=== PATIENT | female | born 1995 | race Caucasian/White ===

== ENCOUNTER 2018-05-16 16:46 | Emergency (ER) | payer BC, OTHER ==
--- NOTE | 2018-05-16 16:50 | EDPHY ---
H & P Time Seen by Provider: 05/16/18 16:49 HPI/ROS: CHIEF COMPLAINT: Right lower quadrant pain HISTORY OF PRESENT ILLNESS: This is a 22-year-old female who is approximately 6 years status post laparoscopy ache cholecystectomy. She was in her usual state of health until approximately 7 days ago. At that time she had noted persistent, steady right lower quadrant pain. It is particularly worse in the last 3 days especially last night. Last night as she was trying to drift off to sleep she was restless for some 90 min as she had this intensification of this pain to the point where she was of sweaty and felt nauseated however she did not vomit. She would classify it as severe, as if an ache. While the pain has been persistent in the right lower quadrant for 1 full week some 4 or 5 days ago she started noticing a fullness of achiness in the right flank. However there has been no dysuria frequency or foul-smelling urine. She has had problems with ovarian cysts on multiple occasions. Several ultrasounds have been needed but the last has been quite some time ago. She has never had any surgery on the urogenital tract. Old charts reviewed. There was an episode of left lower quadrant pain with fevers and chills ultimately diagnosed as pyelonephritis, positive for E coli There have been times with the pain was worse with walking but per se that has not been particularly difficult. Driving here did not seem to bother her. Her appetite has been off. While she is hungry and she sits down to meal she cannot finish it. There is no shoulder pain She did note a clear vaginal discharge this past week prompting her to wear panty liner The her last menstrual period was 3 weeks ago lasted a week. Her bowel habits it is sporadic anywhere from every other day to a full week. Her last bowel was yesterday and she did not have to strain with this About 2 weeks ago she had bit of a nasty cold and has a residual cough but it is certainly be getting better. G 1 P 0 AB 1 LMP 3 weeks ago, last 1 week Contraception: Condoms, uncertain if the sperm settle agent is used REVIEW OF SYSTEMS: Constitutional: No fever, no chills. Eyes: No discharge No diplopia ENT: No sore throat. Cardiovascular: No chest pain, no palpitations. Respiratory: No cough, shortness of breath, or wheezing. Gastrointestinal: See above Genitourinary: See above Musculoskeletal: No back pain. Skin: No rashes. Neurological: No headache. A 10 system review of systems was performed and is negative except for the noted findings in the HPI. Source: Patient - Personal History Tetanus Vaccine Date: within 10 years - Medical/Surgical History Hx Asthma: No Hx Chronic Respiratory Disease: No Hx Diabetes: No Hx Cardiac Disease: No Hx Renal Disease: No Hx Cirrhosis: No Hx Alcoholism: No Hx HIV/AIDS: No Hx Splenectomy or Spleen Trauma: No Other PMH: ovarian cyst. cholecystectomy - Social History Smoking Status: Current every day smoker Alcohol Use: None Drug Use: None - Physical Exam Exam: General Appearance: Alert, no distress. Afebrile. Normal phonation. No respiratory distress. Eyes: Pupils equal and round no pallor or injection. No icterus ENT, Mouth: Mucous membranes moist Pharynx without erythema or exudate. TM Clear. Neck: No adenopathy. Supple. No JVD. Trachea in midline. Respiratory: There are no retractions, lungs are clear to auscultation. Cardiovascular: Regular rate and rhythm. Abdomen: Soft, nondistended. Bowel sounds are present There is tenderness present right lower quadrant with a positive Rovsing in respect to right upper abdominal palpation causing pain in the right lower quadrant, but this does not occur with palpation on left side. There is scant inguinal nodes of no significance. They are nontender. Not enlarged. Femoral pulses equal. Neurological: Ox3. No motor weakness. Sensation intact. Gait nl. Skin: Warm and dry, no rashes. Musculoskeletal: No joint swelling. Extremities: No edema. Homans sign negative. No cords. Psychiatric: Normal affect. Patient is oriented X 3. There is no agitation Constitutional: Initial Vital Signs Temperature (C) 36.6 C 05/16/18 16:52 Heart Rate 73 05/16/18 16:52 Respiratory Rate 18 05/16/18 16:52 Blood Pressure 128/84 H 05/16/18 16:52 O2 Sat (%) 98 05/16/18 16:52 O2 Delivery Mode Room Air Allergies/Adverse Reactions: No Known Allergies Allergy (Verified 05/16/18 16:52) Home Medications: Medication Instructions Recorded Ibuprofen [Motrin (*)] 600 mg PO TID #21 tab 05/16/18 Ondansetron Odt [Zofran Odt 4 mg 4 mg PO Q4 PRN #7 tab 05/16/18 (*)] oxyCODONE HCL/ACETAMINOPHEN 1 each PO Q4HRS PRN #12 tablet 05/16/18 [Percocet 5-325 mg Tablet] Medical Decision Making - Diagnostics Imaging Results: Imaging Impressions Pelvic/Renal Ultrasound 05/16/18 17:22 Impression: Suspect right hemorrhagic cyst although a solid nodule cannot absolutely be excluded. Recommend follow-up pelvic sonogram in 6-8 weeks for reevaluation. Results discussed with Dr. Rodriguez. Abdomen Ultrasound 05/16/18 17:34 Impression: No direct or indirect sonographic evidence for appendicitis. Results called to Dr. Rodriguez at 6:[address] 05/16/18 19:06 Impression: 1. Involuted follicular cyst right adnexa with small amount of free fluid. 2. No CT evidence of appendicitis, abscess or bowel obstruction. 3. Mild constipation. Findings discussed with Yovany Rodriguez MD at 19:43 hour, 05/16/2018. ED Course/Re-evaluation: Initial laboratory tests include the following: Negative urinalysis dip with ossific gravity 1.020 Negative qualitative urine test. Point of care CBC: Borderline with a white count of 10.4 Specimens were submitted for a serum qualitative test. I discussed with her pain management. She drove here. Furthermore she described herself as 1 not to take pain medicines. For instance she took ibuprofen 400 mg at bedtime last night. She decided that she did not want any analgesics prior to the ultrasound though encouraged her to be certain we got a good quality test and if it was uncomfortable for her to go ahead and ask for pain medication. The the ultrasound report as follows: Appendix not seen, maximal tenderness over the cecum Right ovarian cyst either solid versus hemorrhagic, uncertain, 3-4 cm in size Minimal fluid in the cul-de-sac The follicular cysts seen on the left ovary Who was at that time that I met with the patient and recommended the following: CT scan to evaluate appendicitis The exam for consideration of PID. With the above recommendations we had a lengthy discussion of the importance of follow-up as well as definitive diagnosis and earlier treatment as the case might be delineated further. She ultimately concurred with the idea of the CT scan, opting for IV pain medication with the study results pending. Initiated IV ketorolac with IV Zofran. This brought her pain down to a 7. Subsequently she was given IV fentanyl, 25 mcg, with further minimal relief. Ultimately, it was only with Dilaudid 0.5 mg IV did she feel well. I discussed the scan for the radiologist about doing a CT scan with p.o. Contrast in view of her being 130 lb, 5 ft 5. Plan would be to do this protocol with IV contrast without p.o. Contrast After the CT scan I discussed the case with radiologist. He noted that she had a normal appendix, no signs of appendicitis, moderate constipation, and the cyst is seen on the ultrasound this time on the CT scan appeared to be involuting. I met with the patient discussed the therapy options at this point time. She would like to defer the pelvic exam till seen her OBGYN later in the week. Furthermore, we gave her additional dose of Dilaudid 0.5 mg for symptomatic relief. As they are interested fluids was minimal at best she is given a L of IV fluids for volume depletion. Differential Diagnosis: Differential diagnosis includes, but is not limited to: Gastroenteritis, dehydration, diverticulitis, renal colic, kidney stones, ureterolithiasis, appendicitis, gastritis, mesenteric adenitis, urinary tract infection, pyelonephritis, ovarian torsion, PID, ectopic . - Data Points Laboratory Results: 05/16/18 05/16/18 19:02 17:28 POC Hgb 12.9 gm/dL gm/dL (12.6-16.3) POC Hct 38 % % (38-47) POC Sodium 140 mEq/L mEq/L (135-145) POC Potassium 3.7 mEq/L mEq/L (3.3-5.0) POC Chloride 107 mEq/L mEq/L (97-110) POC BUN 8 mg/dL mg/dL (7-23) POC Creatinine 0.6 mg/dL mg/dL (0.6-1.0) POC Glucose 103 mg/dL H mg/dL (70-100) Beta HCG, Qual NEGATIVE Medications Given: Discontinued Medications Fentanyl (Sublimaze) 25 mcg IVP EDNOW ONE Stop: 05/16/18 19:30 Last Admin: 05/16/18 19:37 Dose: 25 mcg Hydromorphone HCl (Dilaudid) 0.5 mg IVP EDNOW ONE Stop: 05/16/18 20:01 Last Admin: 05/16/18 20:13 Dose: 0.5 mg Sodium Chloride (Ns) 1,000 mls @ 0 mls/hr IV EDNOW ONE; Wide Open PRN Reason: Protocol Stop: 05/16/18 19:51 Last Admin: 05/16/18 19:56 Dose: 1,000 mls Ketorolac Tromethamine (Toradol) 15 mg IVP EDNOW ONE Stop: 05/16/18 18:46 Last Admin: 05/16/18 18:49 Dose: 15 mg Ondansetron HCl (Zofran) 4 mg IVP EDNOW ONE Stop: 05/16/18 18:46 Last Admin: 05/16/18 18:49 Dose: 4 mg Ondansetron HCl (Zofran Odt 4 Mg Prepack#2) 1 btl TAKEHOME EDNOW ONE Stop: 05/16/18 20:09 Last Admin: 05/16/18 20:50 Dose: 1 btl Oxycodone/Acetaminophen (Percocet 5/325mg Prepack#4) 1 btl TAKEHOME EDNOW ONE Stop: 05/16/18 20:09 Last Admin: 05/16/18 20:51 Dose: 1 btl Point of Care Test Results: CBC CBC Collection Date 05/16/18 CBC Collection Time 17:28 WBC 10.4 RBC 4.41 HGB 13.4 HCT 39.3 PLT 327 Neut # 7.6 Neut 73.3 LYMPH # 2.4 LYMPH 22.9 Other WBC # 0.4 Other WBC 3.8 MCV 89.1 Chemistry 05/16/18 19:02 POC Sodium 140 mEq/L mEq/L (135-145) POC Potassium 3.7 mEq/L mEq/L (3.3-5.0) POC Chloride 107 mEq/L mEq/L (97-110) POC BUN 8 mg/dL mg/dL (7-23) POC Creatinine 0.6 mg/dL mg/dL (0.6-1.0) POC Glucose 103 mg/dL H mg/dL (70-100) ISTAT H&H 05/16/18 19:02 POC Hgb 12.9 gm/dL gm/dL (12.6-16.3) POC Hct 38 % % (38-47) Urine Collection Date 05/16/18 Collection Time 17:00 HCG Results Negative Urine Dip Collection Date 05/16/18 Collection Time 17:00 Specific [place] (1.002-1.030) 1.020 PH (5.0-7.5) 8.5 Leukocytes (Negative) Negative Nitrites (Negative) Negative Protein (Negative) Negative Glucose (Negative) Negative Ketones (Negative) Negative Urobilnogen (0.2-1.0 EU) 0.2 Bilirubin (Negative) Negative Blood (Negative) Negative Departure - Departure Disposition: Home, Routine, Self-Care Clinical Impression: Abdominal pain Qualifiers: Abdominal location: right lower quadrant Qualified Code(s): R10.31 - Right lower quadrant pain Condition: Good Instructions: Oxycodone/Acetaminophen (By mouth), Ondansetron (By mouth), Acute Abdominal Pain (ED), Ruptured Ovarian Cyst (ED) Additional Instructions: It is a good idea to take increased fluids as the pain medicines will have a tendency to constipate you and there is already evidence on the CT scan that this is beginning to develop. Take the following medications: Colace 100 mg twice daily for 1 week Metamucil or MiraLax daily for 1 week Ibuprofen or [id number] Advil 600 mg three times daily for 1 week Percocet for the pain, 1 pill every 4 hr, as needed. Zofran for the nausea, 1 tablet every 4-8 hours, as needed. Follow-up with her OBGYN in 1-3 days. Call 1st thing tomorrow to set up appointment. Referrals: NONE *PRIMARY CARE P,. [Primary Care Provider] - 2-3 days without fail (Your regular MANAGER [facility] Dr. Estrellita Dixon) Stand Alone Forms: Work Excuse Prescriptions: oxyCODONE HCL/ACETAMINOPHEN [Percocet 5-325 mg Tablet] 1 each PO Q4HRS PRN #12 tablet PRN Reason: moderate to severe pain Ibuprofen [Motrin (*)] 600 mg PO TID #21 tab Ondansetron Odt [Zofran Odt 4 mg (*)] 4 mg PO Q4 PRN #7 tab PRN Reason: Dizziness
[2018-05-16] MEDS ORDERED: ONDANSETRON 4 MG/2 ML VIAL IVP ONE (18:45)
[2018-05-16] MEDS ORDERED: KETOROLAC 15 MG/1 ML SDV IVP ONE (18:45)
[2018-05-16] MEDS ORDERED: IOPAMIDOL (ISOVUE-300) 100 ML BTL ONE (18:47)
[2018-05-16] MEDS ORDERED: fentaNYL 100 MCG/2 ML INJ IVP ONE (19:29)
[2018-05-16] MEDS ORDERED: NS 1,000 ML IV ONE (19:50)
[2018-05-16] MEDS ORDERED: HYDROmorphONE/DILAUDID 1 MG/ML INJ ONE (19:53)
[2018-05-16] MEDS ORDERED: HYDROmorphONE/DILAUDID 2 MG/ML INJ IVP ONE (20:00)
[2018-05-16] MEDS ORDERED: OXYCODONE/APAP 5/325MG PREPACK#4 BTL TAKEHOME ONE (20:08)
[2018-05-16] MEDS ORDERED: ONDANSETRON 4MG PREPACK#2 BTL TAKEHOME ONE (20:08)
[2018-05-16 20:35] VITALS: BP 106/74
== END 2018-05-16 20:51 | disposition home or self-care (01) ==
LOC: CED 16:46
DX: R10.31 Right lower quadrant pain (principal); N83.02 Follicular cyst of left ovary; E86.9 Volume depletion, unspecified; Z90.49 Acquired absence of other specified parts of digestive tract
CPT/HCPCS: 74177-PO; 76705-PO; 76856-PO; 82435-PO; 82565-PO; 82947-PO; 84132-PO; 84295-PO; 84520-PO; 85014-PO; 96374; J1170; J1885; J2405; J3010; Q9967